=== PATIENT | female | born 1990 | race Caucasian/White ===

== ENCOUNTER 2017-09-16 20:10 | Observation (INO) | payer BC, MEDICAID ==
[~2017-09-16] VITALS: Ht 162.6 cm; Wt 81.6 kg
[2017-09-16] MEDS ORDERED: ACETAMINOPHEN 325 MG TAB PO PRN (21:20)
[2017-09-16] MEDS ORDERED: ACETAMINOPHEN 325 MG TAB ONE (21:30)
[2017-09-16 22:01] LABS: APPEARANCE,URINE HAZY (CLEAR); BILIRUBIN,URINE NEGATIVE (NEGATIVE); BLOOD, URINE 2+ (NEGATIVE); COLOR,URINE YELLOW (YELLOW); LEUKOCYTE ESTERASE ,URINE TRACE (NEGATIVE); NITRITE, URINE NEGATIVE (NEGATIVE); UGLUCOSE NEGATIVE (NEGATIVE)
[2017-09-16 22:04] LABS: BASOPHILS # (AUTO) 0.1 K/uL (0.00-0.22); EOSINOPHILS % (AUTO) 0.2 % (0.0-4.0); HEMATOCRIT 36.3 % (36-48); HEMOGLOBIN 12.1 g/dL (12.0-16.0); LYMPHOCYTES % (AUTO) 15.4 % (20.5-51.1); MEAN CORPUSCULAR HEMOGLOBIN 28 pg (27-31); MEAN CORPUSCULAR HGB CONC 33 g/dL (33-37); MEAN CORPUSCULAR VOLUME 85 fL (80-94); MONOCYTES # (AUTO) 0.5 K/uL (0.8-1.0); MONOCYTES % (AUTO) 8.3 % (1.7-9.3); NEUTROPHILS # (AUTO) 4.8 K/uL (1.8-7.7); NEUTROPHILS % (AUTO) 75.1 % (42.2-75.2); PLATELET COUNT (AUTO) 195 K/uL (140-450); RED BLOOD CELL COUNT(AUTO) 4.27 MIL/uL (4.20-5.40); RED CELL DISTRIBUTION WIDTH 12.6 % (11.6-13.7); WHITE BLOOD COUNT (AUTO) 6.4 K/uL (4.8-10.8)
[2017-09-16 22:10] LABS: ANION GAP 12.1 (8-16); CARBON DIOXIDE 27.7 mmol/L (21-32); CREATININE 0.6 mg/dL (0.6-1.3); POTASSIUM 3.8 mmol/L (3.5-5.1)
[2017-09-16 22:16] LABS: PROTHROMBIN TIME 10.3 secs (10.8-13.4)
[2017-09-16 22:17] LABS: ALBUMIN 2.6 g/dL (3.4-5.0); MAGNESIUM 1.9 mg/dL (1.8-2.4); TOTAL BILIRUBIN 0.2 mg/dL (0.0-1.0)
[2017-09-16 22:33] LABS: RBC,URINE 3-10 (FEW) /HPF (0-5)
[2017-09-17] MEDS ORDERED: cefTRIAXone 1,000 MG in LIDOCAINE 1% ***ER ONLY *** 2.1 ML IM ONE (00:25)
[2017-09-17] MEDS ORDERED: cefTRIAXone 1,000 MG VIAL ONE (00:41)
[2017-09-17] MEDS ORDERED: LIDOCAINE 1% 50 ML ONE (00:52)
[2017-09-17 02:00] VITALS: BP 120/76
== END 2017-09-17 07:45 | disposition home or self-care (01) ==
LOC: MLD 20:10
PROVIDERS: ADMIT Obstetrics & Gynecology; ATTEND Obstetrics & Gynecology
DX: O26.893 Other specified pregnancy related conditions, third trimester (principal); R51 Headache; Z3A.28 28 weeks gestation of pregnancy
CPT/HCPCS: 36415; 76805; 80053; 81001; 83735; 85025; 85384; 85610; 85730; 87086; G0378; J0696; J2001; Q0092

== ENCOUNTER 2019-03-17 21:40 | Emergency (ER) | payer MEDICAID ==
[~2019-03-17] VITALS: Ht 167.6 cm; Wt 114.3 kg
[2019-03-17 21:47] VITALS: BP 134/80
--- NOTE | 2019-03-17 21:49 | NUR ---
TO LOBBY A/W BED AMBULATORY
--- NOTE | 2019-03-17 22:14 | NUR ---
Dr. Morton examining patient.
[2019-03-17] MEDS ORDERED: LIDOCAINE 1% 500 MG/50 ML VIAL INJ SCH (22:25)
[2019-03-17] MEDS ORDERED: LIDOCAINE MPF 1% - 5 mL VIAL 5 ML ONE (23:16)
[2019-03-17 23:45] VITALS: BP 134/80
== END 2019-03-17 23:45 | disposition home or self-care (01) ==
LOC: MED 21:40
DX: L03.011 Cellulitis of right finger (principal); Z98.890 Other specified postprocedural states
CPT/HCPCS: 10060; 99283; J2001

== ENCOUNTER 2020-04-19 16:23 | Emergency (ER) | payer MEDICAID ==
[~2020-04-19] VITALS: Ht 162.6 cm; Wt 104.3 kg
[2020-04-19 16:29] VITALS: BP 151/106
--- NOTE | 2020-04-19 16:40 | NUR ---
29 y/o female from home c/o left leg pain and lower back pain s/p slip and fall at [employer] around 1320 today. Denies LOC. Pt able to ambulate, no deformities noted. 8/10 aching pain. Awake and alert. Positioned for comfort.
[2020-04-19] MEDS ORDERED: KETOROLAC 30 MG/ML VIAL IM ONE (16:45)
--- NOTE | 2020-04-19 17:03 | NUR ---
Pt to xray via wheelchair
--- NOTE | 2020-04-19 17:13 | NUR ---
Pt returned from xray via wheelchair
--- NOTE | 2020-04-19 17:58 | NUR ---
Pt states decrease in pain, positioned for comfort. VSS
[2020-04-19 18:24] VITALS: BP 141/99
--- NOTE | 2020-04-19 18:24 | NUR ---
Patient discharged with v/s stable. Written and verbal after care instructions given and explained. Patient alert, oriented and verbalized understanding of instructions. Ambulatory with steady gait. All questions addressed prior to discharge. ID band removed. Patient advised to follow up with PMD. Rx of Flexeril 10mg, and Ibuprofen 600mg given. Patient educated on indication of medication including possible reaction and side effects. Opportunity to ask questions provided and answered.
== END 2020-04-19 18:24 | disposition home or self-care (01) ==
LOC: MED 16:23
DX: S39.012A Strain of muscle, fascia and tendon of lower back, initial encounter (principal); R03.0 Elevated blood-pressure reading, without diagnosis of hypertension; M79.605 Pain in left leg; W18.39XA Other fall on same level, initial encounter; Y93.89 Activity, other specified; Y92.89 Other specified places as the place of occurrence of the external cause; Y99.8 Other external cause status
CPT/HCPCS: 72220; 81002; 81025; 96372; 99283; J1885; 99285